=== PATIENT | female | born 1995 | race Hispanic/Latino ===

== ENCOUNTER 2017-05-05 09:40 | Emergency (ER) | payer OTHER ==
[2017-05-05] MEDS ORDERED: IPRATROPIUM/ALBUTEROL SULFATE 3 ML SOLUTION IH ONE (09:58)
[2017-05-05 10:27] LABS: RAPID GROUP A STREP NEGATIVE (NEGATIVE)
[2017-05-05 11:22] LABS: BASOPHILS % (AUTO) 0.4 % (0.0-5.0); EOSINOPHILS % (AUTO) 3.2 % (0.0-8.0); HEMATOCRIT 33.7 % (36-48); MEAN CORPUSCULAR HEMOGLOBIN 26.9 pg (27.0-33.0); MEAN CORPUSCULAR HGB CONC 32.5 g/dL (32.0-36.0); MEAN CORPUSCULAR VOLUME 82.8 fL (79-99); MONOCYTES % (AUTO) 7.9 % (3.0-13.0); NEUTROPHILS % (AUTO) 71.5 % (40.0-77.0); PLATELET COUNT (AUTO) 380 K/uL (130-400); RED BLOOD CELL COUNT(AUTO) 4.07 MIL/uL (4.00-5.50); RED CELL DISTRIBUTION WIDTH 14.4 % (11.0-15.5); WHITE BLOOD COUNT (AUTO) 11.4 K/uL (4.8-10.8)
[2017-05-05 11:34] LABS: CREATININE 0.6 mg/dL (0.5-1.5); POTASSIUM 3.5 mmol/L (3.5-5.1)
== END 2017-05-05 12:20 | disposition home or self-care (01) ==
LOC: EDH 09:40
DX: B34.9 Viral infection, unspecified (principal)
CPT/HCPCS: 36415; 71046; 80048; 81025; 85025; 87804; 87880; 94640